=== PATIENT | female | born 1995 | race Caucasian/White ===

== ENCOUNTER 2017-10-05 09:20 | Inpatient (IN) | payer OTHER ==
[~2017-10-05] VITALS: Ht 160 cm; Wt 52.7 kg
[~2017-10-05 09:20] MED LIST: FERR142T PO; HYDR-5688 PO; MESA0.37 PO; PRED20TA2 PO
[2017-10-05] MEDS ORDERED: SODIUM CHLORIDE 0.9% 1000ML 2,000 ML IV STA (09:51)
[2017-10-05] MEDS ORDERED: ONDANSETRON INJ 2 MG/ML 2 ML VIAL IV STA (09:51)
[2017-10-05] MEDS ORDERED: FAMOTIDINE 20MG/5ML IV PUSH IV STA (09:51)
[2017-10-05] MEDS ORDERED: ACETAMINOPHEN IV 100 ML IV STA (09:56)
[2017-10-05 10:26] LABS: HEMATOCRIT 24.7 % (37-47); HEMOGLOBIN 7.3 g/dL (12.0-16.0); MEAN CELL VOLUME 70.6 fL (80-100); MEAN CORPUSCULAR HEMOGLOBIN 20.9 pg (25-34); MEAN CORPUSCULAR HGB CONC 29.6 g/dl (32-36); MEAN PLATELET VOLUME 8.1 fL (7.4-10.4); NUCLEATED RED BLOOD CELL ABS 0.02 K/uL (0-0); PLATELET COUNT 438 K/uL (130-400); RED CELL DISTRIBUTION WIDTH CV 18.1 % (11.5-14.5); RED CELL DISTRIBUTION WIDTH SD 46.6 fL (36.4-46.3); WHITE BLOOD COUNT 16.44 K/uL (4.8-10.8)
[2017-10-05 10:33] LABS: ALBUMIN 2.9 gm/dl (3.4-5.0); ALT/SGPT 15 U/L (12-78); AST/SGOT 13 U/L (15-37); BLOOD UREA NITROGEN 12 mg/dl (7-18); CALCIUM 8.3 mg/dl (8.5-10.1); CARBON DIOXIDE 30 mmol/L (21-32); CREATININE 0.89 mg/dl (0.60-1.20); GLUCOSE 102 mg/dl (70-99); LIPASE 180 U/L (73-393); POTASSIUM 3.2 mmol/L (3.5-5.1); SODIUM 137 mmol/L (136-145)
[2017-10-05 10:36] LABS: ALKALINE PHOSPHATASE 81 U/L (45-117)
[2017-10-05 10:59] LABS: BASO % 0.2 %; BASO ABS # 0.04 K/uL (0-0.2); EOS % 0.9 %; EOS ABS # 0.15 K/uL (0-0.5); IG# 0.07 K/uL (0.00-0.02); LYMPH % 12.3 %; LYMPH ABS # 2.03 K/uL (1.2-3.4); MONO ABS # 1.15 K/uL (0.11-0.59); NEUT % 79.2 %
[2017-10-05] MEDS ORDERED: METHYLPREDNISOLONE 125 MG VIAL IV STA (13:19)
[2017-10-05] MEDS ORDERED: HYDROCODONE/ACETAMIN 5/325MG TAB PO PRN (14:45)
[2017-10-05] MEDS ORDERED: [UNRECOGNIZED DRUG - OTHER] IV SCH (14:45)
[2017-10-05] MEDS ORDERED: ALUMINUM/MAGNESIUM/SIMETH (MAALOX MAX) 30 ML UDC PO PRN (14:45)
[2017-10-05] MEDS ORDERED: ACETAMINOPHEN 325 MG TAB PO PRN (14:45)
[2017-10-05] MEDS ORDERED: ZOLPIDEM TARTRATE 5 MG TAB PO PRN ×2 (14:45)
[2017-10-05] MEDS ORDERED: MAGNESIUM HYDROXIDE SUSP 30 ML UDC PO PRN (14:45)
[2017-10-05] MEDS ORDERED: ONDANSETRON INJ 2 MG/ML 2 ML VIAL IV PRN (14:45)
--- NOTE | 2017-10-05 15:08 | History and Physical ---
History & Physical Date & Time of Service: Oct 05, 2017 at 14:58 Chief Complaint: Ulcerative Colitis,Referred By Gi Primary Care Physician: [facility] History of Present Illness Source: patient 21 years old female who was diagnosed with ulcerative colitis in 2014. Had few flares since then but generally was fairly controlled on only mesalamine oral. Patient last flare was in March 2017 which was showed flare she recovered from it quickly. In May 2017 patient had a colonoscopy that was within normal limits. 2 weeks ago patient developed fever lower abdominal pain crampy in nature exaggerated by bowel movement goes to 8 out of 10 with bowel movement. Denies any nausea or vomiting. Patient came to the ED and a CAT scan was done and showed descending colitis. She was giving prednisone taper and followed up with GI. Patient has been on 35 mg prednisone daily with no improvement. She continued to have bright blood per rectum. Patient said that her baseline hemoglobin is about 11-12. Her hemoglobin 5 days ago was 8.7. Her hemoglobin today came back 7.3 discussed the possibility of blood transfusion with her and she wants to discuss it with her parents. Patient gets dizzy after bowel movement. She goes to the bathroom after every meal. Also wakes up at night to go to the bathroom. Past Medical/Surgical History Medical Problems: (1) Anemia (2) Anemia (3) IBD (inflammatory bowel disease) (4) Ulcerative colitis (5) Ulcerative colitis Family History Cancer Diabetes mellitus Hypertension Social History Smoking Status: Never Smoker Occupational Status: [employer] student Allergies Coded Allergies: No Known Allergies (Unverified , 09/29/17) Home Medications Scheduled Ferrous Sulfate (Slow Fe), 142 MG PO DAILY Mesalamine (Apriso), 4 CAP PO DAILY Prednisone (Prednisone Tab), 2 TAB PO DAILY Scheduled PRN Hydrocodone/Acetaminophen 5MG/325MG ([place] 5MG/325MG), 1 TABLET PO Q6 PRN for Pain Review of Systems Review of system Constitutional: No fever / no chills / no sweats /generalized fatigue and weakness Eyes: no blurring of vision / no eye pain / no discharge / no redness ENT: no hearing loss / no epistaxis /no swallowing problems Respiratory: no cough / no wheezing / no SOB / no hemoptysis Cardiovascular: no Chest pain / no lower extremity edema / no palpitation Abdomen: Positive for severe diarrhea with blood, abdominal pain/ no nausea / no vomiting / no constipation Musculoskeletal: no joint pain / no muscle pain / no joint swelling Genitourinary: no dysuria / no incontinence / no urinary retention Neurologic: no focal weakness / no numbness/tingling / no ataxia Psychiatric: no depression symptoms / no anxiety / no insomnia Endocrine: no excessive thirst / no excessive urination Hematologic: no abnormal bleeding / no bruising / no LN swelling Skin: No rash / no pallor Physical Exam Vital Signs Date Time Temp Pulse Resp B/P (MAP) Pulse Ox O2 Delivery O2 Flow Rate FiO2 10/05/17 14:49 74 18 107/58 98 Room Air 10/05/17 11:45 79 16 106/65 100 Room Air 10/05/17 10:41 82 16 120/68 100 10/05/17 09:27 37.7 119 18 115/82 99 Room Air Physical examination General patient appears to be weak and pale, not in acute distress HEENT: Atraumatic , normocephalic /no jaundice /no pallor /anicteric /no dry mucous membrane /normal external ear inspection Neck: Supple /no swelling /central trach Heart: S1/S2 normal/regular rate and rhythm/no gallop /no rub /no murmur Lungs: Clear to auscultation bilaterally/normal chest with expansion/no rhonchi/ no rales/no wheezing/no use of accessory muscles of respiration Abdomen: Soft/nontender/no guarding/no rebound/no organomegaly/no pulsatile mass Musculoskeletal: No swelling/no edema/no tenderness/normal range of motion Neuro exam: Awake alert oriented 3/cranial nerves II through XII appear to be intact/sensation intact/moves all extremities/no abnormal movements Psychiatric evaluation: No depressed mood/normal affect Skin: No rash on exposed skin area/no erythema Extremity: Normal pulse/no pitting edema/no clubbing or cyanosis Endocrine/lymphatic: No obvious lymphadenopathy /no lymphedema Diagnostics Laboratory Results Results Past 24 Hours Test 10/05/17 10:00 10/05/17 10:05 10/05/17 14:45 Range/Units Urine Color DK YELLOW Urine Appearance CLOUDY CLEAR Urine pH 5.5 4.5-7.5 Urine Specific [place] 1.026 1.000-1.030 Urine Protein TRACE NEG Urine Glucose (UA) NEG NEG Urine Ketones TRACE NEG Urine Occult Blood 1+ NEG Urine Nitrite NEG NEG Urine Bilirubin NEG NEG Urine Urobilinogen NEG NEG Urine Leukocyte Esterase MODERATE NEG Urine WBC (Auto) >30 0-5 /hpf Urine RBC (Auto) 0-4 0-4 /hpf Urine Hyaline Casts (Auto) 1-5 0-5 /lpf Urine Epithelial Cells (Auto) >30 0-5 /lpf Urine Bacteria (Auto) 2+ NEG Urine Pathogenic Casts 0 /lpf Urine Mucus PRESENT NONE PRSENT Urine Test NEG NEG White Blood Count 16.44 4.8-10.8 K/uL Red Blood Count 3.50 4.2-5.4 M/uL Hemoglobin 7.3 12.0-16.0 g/dL Hematocrit 24.7 37-47 % Mean Corpuscular Volume 70.6 80-100 fL Mean Corpuscular Hemoglobin 20.9 25-34 pg Mean Corpuscular Hemoglobin Concent 29.6 32-36 g/dl Platelet Count 438 130-400 K/uL Mean Platelet Volume 8.1 7.4-10.4 fL Neutrophils (%) (Auto) 79.2 % Lymphocytes (%) (Auto) 12.3 % Monocytes (%) (Auto) 7.0 % Eosinophils (%) (Auto) 0.9 % Basophils (%) (Auto) 0.2 % Neutrophils # (Auto) 13.00 1.4-6.5 K/uL Lymphocytes # (Auto) 2.03 1.2-3.4 K/uL Monocytes # (Auto) 1.15 0.11-0.59 K/uL Eosinophils # (Auto) 0.15 0-0.5 K/uL Basophils # (Auto) 0.04 0-0.2 K/uL RDW Standard Deviation 46.6 36.4-46.3 fL RDW Coefficient of Variation 18.1 11.5-14.5 % Immature Granulocyte % (Auto) 0.4 % Immature Granulocyte # (Auto) 0.07 0.00-0.02 K/uL Nucleated RBC Absolute Count (auto) 0.02 0-0 K/uL Nucleated Red Blood Cells % 0.1 % Hypochromasia PRESENT Microcytosis PRESENT Erythrocyte Sedimentation Rate 54 0-21 mm/hr Sodium Level 137 136-145 mmol/L Potassium Level 3.2 3.5-5.1 mmol/L Chloride Level 103 98-107 mmol/L Carbon Dioxide Level 30 21-32 mmol/L Anion Gap 4.0 3-11 mmol/L Blood Urea Nitrogen 12 7-18 mg/dl Creatinine 0.89 0.60-1.20 mg/dl Est Creatinine Clear Calc Drug Dose 83.4 ml/min Estimated GFR () 108.1 Estimated GFR (Non- 93.3 BUN/Creatinine Ratio 13.8 10-20 Random Glucose 102 70-99 mg/dl Lactic Acid Level 1.0 0.4-2.0 mmol/L Calcium Level 8.3 8.5-10.1 mg/dl Total Bilirubin 0.2 0.2-1 mg/dl Direct Bilirubin < 0.1 0-0.2 mg/dl Aspartate Amino Transf (AST/SGOT) 13 15-37 U/L Alanine Aminotransferase (ALT/SGPT) 15 12-78 U/L Alkaline Phosphatase 81 45-117 U/L C-Reactive Protein 4.14 0-0.29 mg/dl Total Protein 7.0 6.4-8.2 gm/dl Albumin 2.9 3.4-5.0 gm/dl Lipase 180 73-393 U/L Microbiology Results 10/05/17 Blood Culture, Ordered Pending 10/05/17 Blood Culture, Ordered Pending 10/05/17 Urine Culture, Received Pending Diagnostic Radiology [~ rep ct add3]] ABD/PELVIS IV AND ORAL CONT CT DOSE: 281.67 mGy.cm HISTORY: Pain Fever. Ulcerative colitis flare. TECHNIQUE: Multiaxial CT images of the abdomen and pelvis were performed following the use of intravenous and oral contrast. A dose lowering technique was utilized adhering to the principles of ALARA. COMPARISON STUDY: None. FINDINGS: Lung bases are clear. Liver spleen and pancreas are unremarkable. The kidneys enhance uniformly. Moderate edematous change of the wall of the descending and sigmoid colon. No evidence for abscess collection or obstruction. Possible small bilateral ovarian follicular cysts. Nonobstructive bowel pattern. Several small reactive mesenteric nodes. IMPRESSION: 1. Moderate bowel wall edema of the descending and sigmoid colon. 2. Considerations include a nonspecific colitis 3. No evidence for abscess collection or obstruction. Impression Assessment and Plan 21 years old female presented to the hospital with persistent recurrent ulcerative colitis flare failed outpatient medication sed rate and CRP were both elevated. Assessment Ulcerative colitis flare Bloody diarrhea secondary to above Acute on chronic blood loss anemia Plan Admit patient to [facility] IV fluid hydration Continue Cipro/Flagyl Ordered stool culture Ova and parasite for Giardia, Cryptosporidium, Cyclospora and microsporidia Ordered stool cultures Ordered Clostridium difficile Pain management Pepcid for GI prophylaxis Due to significant GI bleed, will hold off pharmacologic DVT prophylaxis ordered SCD boot Consult GI, patient follows up with Dr. Fountain Ordered iron transfusion will monitor hemoglobin and consider Blood transfusion if it falls below 7 Resuscitation Status VTE Prophylaxis Will order VTE Prophylaxis: Yes
[2017-10-05] MEDS: SODIUM CHLORIDE 0.9% 1000ML 1,000 ML IV SCH (17:15)
[2017-10-05 17:34] VITALS: BP 107/71; PULSE 85; TEMP 36.8; O2SAT 100; Ht 160 cm; Wt 52.7 kg
[2017-10-05] MEDS: METRONIDAZOLE 500MG / NSS IV SCH (18:24)
[2017-10-05] MEDS: CIPROFLOXACIN 400MG / D5W IV SCH (18:25)
[2017-10-05] MEDS: ONDANSETRON 4MG OD TAB SL SCH ×2 (18:32→22:47)
--- NOTE | 2017-10-05 18:35 | GASTROINTESTINAL CONSULTATION ---
DATE OF CONSULTATION: 10/05/2017 AGE: 21. SEX: Female. RACE: . ATTENDING PHYSICIAN: Dr. Sola Stauffer. CONSULTING PHYSICIAN: Dr. Fountain. REASON FOR CONSULTATION: Ulcerative colitis flare. HISTORY OF PRESENT ILLNESS: Toby Peng is a 21-year-old female who initially came to my attention as I was the on-call physician when she presented to the Department of Emergency Medicine on 09/29/2017 with complaints of bright red blood in her stool and abdominal cramping. She underwent laboratory studies at that time which showed an H&H of 8.7 and 28.9 with an MCV of 70.7. Her C-reactive protein at that time was 5.06 [address] she [address] a CT scan of the abdomen and pelvis which showed a moderate bowel wall edema of the descending and sigmoid colon. Decision was made to start the patient on a steroid taper and for a quick followup in outpatient GI office. She was seen by Jayleen Jose PA-C at our office on 10/02/2017. She does have a known history of ulcerative colitis and was diagnosed in her hometown of [place], [place] by Dr. Mack at [facility] in 2015. Since that time she has been maintained on Apriso therapy 1.5 grams p.o. daily. Records obtained reveal that her last colonoscopy was in May of [address] Makc noted significant improvement in her ulcerative pancolitis and maintained her on Apriso therapy. At the time that she was seen in our office on 10/02/2017, she did note that she was having continued bright red blood per rectum and had been on prednisone therapy for approximately 4 days. She was taking iron therapy and as she is a student at [employer] wished to be seen by her primary event marketing assistant prior to making any medication changes and followup appointment with him was scheduled within 2 weeks. She subsequently returned to the Department of Emergency Medicine on 10/05/2017 with continued complaints of hematochezia. Upon arrival today, her H&H was noted to be 7.3 and 24.7. Her platelet count was 438. Her white blood cell count was elevated at 16.44; however, she was on steroid therapy. C-reactive protein had decreased from 5.04-4.14 from her prior ER visit and a UA showed moderate leukocyte esterase, greater than 30 white blood cells and 2+ bacteria. She was subsequently admitted. At the time that I saw the patient, she stated that she had had 1 bowel movement since her arrival though noted that there was decreased blood in it than previously. She states currently she is having no abdominal pain but does have approximately 6-7 bowel movements a day, some with blood mixed in with her stool. She denies any fevers, chills, nausea or vomiting. She further denies any headaches, blurred vision, syncope, seizures, loss of consciousness, chest pain, palpitations, shortness of breath, cough, hematuria, joint pain, eye pain or other complaints. She has no further complaints. PAST MEDICAL HISTORY: Significant for ulcerative pancolitis diagnosed in 2016. Anemia. PAST SURGICAL HISTORY: None. ALLERGIES: None. MEDICATIONS: At the present time include famotidine 20 mg IV daily, iron sucrose 100 mg IV daily, milk of magnesia 30 mL p.o. q. 6 p.r.n. constipation, Ambien 5 mg p.o. at bedtime p.r.n. insomnia, Zofran 4 mg IV q. 6 p.r.n. nausea. She did receive a dose of methylprednisolone in the ER, IV. SOCIAL HISTORY: She is a student at [employer]. She denies any tobacco or illicit drug use. She has an occasional alcoholic beverage. FAMILY HISTORY: Negative for GI malignancy or inflammatory bowel disease. REVIEW OF SYSTEMS: Negative x12 system review other than pertinent positives listed in the HPI. PHYSICAL EXAMINATION: VITAL SIGNS: Include a temperature 36.8, pulse 85, respirations 16, blood pressure 107/71, pulse ox 99% on room air. GENERAL: She is awake, cooperative, in no acute distress. HEAD: Normocephalic, atraumatic. EYES: Pupils equal, round. Extraocular muscles are intact. ENT: External evaluation of ears and nose are normal. Oropharynx clear. NECK: Soft, supple. No JVD or lymphadenopathy. CHEST: Clear to auscultation bilaterally. CARDIOVASCULAR SYSTEM: Regular rate and rhythm. ABDOMEN: Soft, nontender, nondistended. Positive bowel sounds. There is no hepatosplenomegaly or stigmata of chronic liver disease. EXTREMITIES: No clubbing, cyanosis, or edema. SKIN: Noted pallor. LABORATORY STUDIES AND RADIOGRAPHIC STUDIES: Were reviewed in the HPI. IMPRESSION: This is a 21-year-old female who presents with a flare of her ulcerative colitis with chronic blood loss anemia and hematochezia. PLAN: At the present time, I would recommend that the patient stop her Apriso therapy. I will start her on mesalamine 1600 mg p.o. t.i.d. for a total dose of 4.8 grams per day. I would also recommend that she be on methylprednisolone 20 mg IV b.i.d. as this is an equivalent dose to prednisone 40 mg that she was on as an outpatient. I would recommend continuing her IV iron therapy. I will sign the patient out to Dr. Hoff who is covering my service over the weekend. If there are any questions regarding her care, please contact him in this regard. Once again, thanks for allowing me to participate in the care of this patient. If you have any further questions, please do not hesitate in contacting me.
--- NOTE | 2017-10-05 18:38 | EMERGENCY ROOM VISIT NOTE ---
History Report prepared by Keshia: Eugenio Rodarte Under the Supervision of: Dr. Georges Cowan M.D. First contact with patient: 09:47 Chief Complaint: GI ASSESSMENT Stated Complaint: ULCERATIVE COLITIS,REFERRED BY GI Nursing Triage Summary: Pt reports hx UC. Saw GI on sunday and has been getting worse. Pt reports bloody diarrhea, vomiting, nausea, unable to eat/drink History of Present Illness The patient is a 21 year old female who presents to the Emergency Room with complaints of persistent diarrhea and hematochezia that she has been experiencing for the past two weeks. The patient has a history of Ulcerative Colitis and began to notice "bright red blood" in her diarrhea two weeks ago. The patient is also nauseous, but has not vomited. She notes that she is not able to eat/drink anything without needing to go to the restroom. She is having "several" bowel movements a day, and notes that she feels a "cramping" in her lower abdomen with BMs. The patient came into the ED on Sunday, 6 days ago for her symptoms. She had a CT of her abdomen with IV-contrast, and was placed on Prednisone. This Prednisone has not improved her symptoms over the past 6 days. She now notes that she is having movements that are only blood, without stool. She did also visit with her GI physician two days ago. The patient notes that this episode is worse than her normal flairs. The patient also complains of a headache, but has no urinary irregularities. Source of History: patient Onset: 2 weeks ago Position: abdomen Symptom Intensity: several bouts of bloody diarrhea per day Quality: cramping (in abdomen), other (Hematochezia) Timing: other (persistent) Associated Symptoms: + headache, + nausea, No vomiting, No urinary symptoms Review of Systems See HPI for pertinent positives and negatives. A total of ten systems were reviewed and were otherwise negative. Past Medical & Surgical Medical Problems: (1) Anemia (2) IBD (inflammatory bowel disease) (3) Ulcerative colitis Ulcerative colitis Family History Cancer Diabetes mellitus Hypertension Social History Smoking Status: Never Smoker Marital Status: single Housing Status: lives with roommate Occupation Status: [employer] Current/Historical Medications Scheduled Ferrous Sulfate (Slow Fe), 142 MG PO DAILY Mesalamine (Apriso), 4 CAP PO DAILY Prednisone (Prednisone Tab), 2 TAB PO DAILY Scheduled PRN Hydrocodone/Acetaminophen 5MG/325MG (Lee 5MG/325MG), 1 TABLET PO Q6 PRN for Pain Allergies Coded Allergies: No Known Allergies (Unverified , 09/29/17) Physical Exam Vital Signs Date Time Temp Pulse Resp B/P (MAP) Pulse Ox O2 Delivery O2 Flow Rate FiO2 10/05/17 14:49 74 18 107/58 98 Room Air 10/05/17 11:45 79 16 106/65 100 Room Air 10/05/17 10:41 82 16 120/68 100 10/05/17 09:27 37.7 119 18 115/82 99 Room Air Physical Exam GENERAL: Awake, alert, fatigued and mildly uncomfortable but in no distress HENT: Normocephalic, atraumatic. Mucous membranes are dry. EYES: Normal conjunctiva. Sclera non-icteric. NECK: Supple. No nuchal rigidity. FROM. No JVD. RESPIRATORY: Clear to auscultation. CARDIAC: Regular rate, normal rhythm. Extremities warm and well perfused. Pulses equal. ABDOMEN: Soft, non-distended. Mild generalized discomfort but no discrete tenderness to palpation. No rebound or guarding. No masses. RECTAL: Deferred. MUSCULOSKELETAL: Chest examination reveals no tenderness. The back is symmetrical on inspection without obvious abnormality. There is no CVA tenderness to palpation. No joint edema. LOWER EXTREMITIES: Calves are equal size bilaterally and non-tender. No edema. No discoloration. NEURO: Normal sensorium. No sensory or motor deficits noted. SKIN: No rash or jaundice noted. Medical Decision & Procedures Laboratory Results 10/05/17 10:05 Red Blood Count 3.50, Mean Corpuscular Volume 70.6, Mean Corpuscular Hemoglobin 20.9, Mean Corpuscular Hemoglobin Concent 29.6, Mean Platelet Volume 8.1, Neutrophils (%) (Auto) 79.2, Lymphocytes (%) (Auto) 12.3, Monocytes (%) (Auto) 7.0, Eosinophils (%) (Auto) 0.9, Basophils (%) (Auto) 0.2, Neutrophils # (Auto) 13.00, Lymphocytes # (Auto) 2.03, Monocytes # (Auto) 1.15, Eosinophils # (Auto) 0.15, Basophils # (Auto) 0.04 10/05/17 10:05 Test 10/05/17 10:00 10/05/17 10:05 Urine Color DK YELLOW Urine Appearance CLOUDY (CLEAR) Urine pH 5.5 (4.5-7.5) Urine Specific [place] 1.026 (1.000-1.030) Urine Protein TRACE (NEG) Urine Glucose (UA) NEG (NEG) Urine Ketones TRACE (NEG) Urine Occult Blood 1+ (NEG) Urine Nitrite NEG (NEG) Urine Bilirubin NEG (NEG) Urine Urobilinogen NEG (NEG) Urine Leukocyte Esterase MODERATE (NEG) Urine WBC (Auto) >30 /hpf (0-5) Urine RBC (Auto) 0-4 /hpf (0-4) Urine Hyaline Casts (Auto) 1-5 /lpf (0-5) Urine Epithelial Cells (Auto) >30 /lpf (0-5) Urine Bacteria (Auto) 2+ (NEG) Urine Pathogenic Casts /lpf (0) Urine Mucus PRESENT (NONE PRSENT) Urine Test NEG (NEG) White Blood Count 16.44 K/uL (4.8-10.8) Red Blood Count 3.50 M/uL (4.2-5.4) Hemoglobin 7.3 g/dL (12.0-16.0) Hematocrit 24.7 % (37-47) Mean Corpuscular Volume 70.6 fL (80-100) Mean Corpuscular Hemoglobin 20.9 pg (25-34) Mean Corpuscular Hemoglobin Concent 29.6 g/dl (32-36) Platelet Count 438 K/uL (130-400) Mean Platelet Volume 8.1 fL (7.4-10.4) Neutrophils (%) (Auto) 79.2 % Lymphocytes (%) (Auto) 12.3 % Monocytes (%) (Auto) 7.0 % Eosinophils (%) (Auto) 0.9 % Basophils (%) (Auto) 0.2 % Neutrophils # (Auto) 13.00 K/uL (1.4-6.5) Lymphocytes # (Auto) 2.03 K/uL (1.2-3.4) Monocytes # (Auto) 1.15 K/uL (0.11-0.59) Eosinophils # (Auto) 0.15 K/uL (0-0.5) Basophils # (Auto) 0.04 K/uL (0-0.2) RDW Standard Deviation 46.6 fL (36.4-46.3) RDW Coefficient of Variation 18.1 % (11.5-14.5) Immature Granulocyte % (Auto) 0.4 % Immature Granulocyte # (Auto) 0.07 K/uL (0.00-0.02) Nucleated RBC Absolute Count (auto) 0.02 K/uL (0-0) Nucleated Red Blood Cells % 0.1 % Hypochromasia PRESENT Microcytosis PRESENT Erythrocyte Sedimentation Rate 54 mm/hr (0-21) Anion Gap 4.0 mmol/L (3-11) Est Creatinine Clear Calc Drug Dose 83.4 ml/min Estimated GFR () 108.1 Estimated GFR (Non- 93.3 BUN/Creatinine Ratio 13.8 (10-20) Lactic Acid Level 1.0 mmol/L (0.4-2.0) Calcium Level 8.3 mg/dl (8.5-10.1) Total Bilirubin 0.2 mg/dl (0.2-1) Direct Bilirubin < 0.1 mg/dl (0-0.2) Aspartate Amino Transf (AST/SGOT) 13 U/L (15-37) Alanine Aminotransferase (ALT/SGPT) 15 U/L (12-78) Alkaline Phosphatase 81 U/L (45-117) C-Reactive Protein 4.14 mg/dl (0-0.29) Total Protein 7.0 gm/dl (6.4-8.2) Albumin 2.9 gm/dl (3.4-5.0) Lipase 180 U/L (73-393) Procalcitonin 0.08 ng/ml (0-0.5) Laboratory results reviewed by me Medications Administered Medications (Trade) Dose Ordered Sig/Lizbet Route Start Time Stop Time Status Last Admin Dose Admin Sodium Chloride 2,000 ml @ 999 mls/hr Q2H1M STAT IV 10/05/17 09:51 10/05/17 11:51 DC 10/05/17 10:14 999 MLS/HR Ondansetron HCl (Zofran Inj) 4 mg NOW STAT IV 10/05/17 09:51 10/05/17 09:57 DC 10/05/17 10:14 4 MG Famotidine (Pepcid 20mg Iv Push) 20 mg ONE STAT IV 10/05/17 09:51 10/05/17 09:57 DC 10/05/17 10:14 20 MG Acetaminophen 100 ml @ 400 mls/hr NOW STAT IV 10/05/17 09:56 10/05/17 10:10 DC 10/05/17 10:13 400 MLS/HR Methylprednisolone Sodium Succinate (Solu-Medrol IV) 40 mg STK-MED ONCE .ROUTE 10/05/17 13:39 10/05/17 13:40 DC 10/05/17 13:39 20 MG ED Course 0949: The patient was evaluated in room B11B. A complete history and physical exam was performed. 1136: I updated the patient at this time. She is doing well. 1314: I discussed the case with Dr. Александр Phillips [facility]. He suggests an inpatient stay with IV-steroids. 1322: I updated the patient at this time. She was resting in bed. 1424: I discussed the case with Dr. Sola Stauffer [place] [facility] [place]. He will evaluate the patient for further treatment. Medical Decision I reviewed the patient's past medical history, medications, and the nursing notes as described above. Differential diagnosis: Etiologies such as appendicitis, diverticulitis, PUD, biliary pathology, UTI, pancreatitis, obstruction, mesenteric ischemia, aortic pathology, infections, inflammatory bowel disease, renal colic, as well as others were entertained. The patient is a 21-year-old woman with a past medical history of ulcerative colitis on mesalamine who presents emergency department with persistent of her bloody bowel movements in the setting of her ulcerative colitis flare after being seen in the emergency department on 09/29 for similar symptoms per hpi. Of note, on the patient's prior ED visit she did have a CT with IV and oral contrast that did show descending and sigmoid colon bowel wall thickening. At that time her WBC was within normal limits. ESR 64 and CRP 5. On arrival today the patient is uncomfortable but no acute distress, afebrile stable vital signs. She has generalized abdominal discomfort but no discrete tenderness. Labs today demonstrate a WBC of 16 however in the setting of being on prednisone. Otherwise her inflammatory markers do appear to be improving with ESR in 50s and CRP of 4. However, the patient's hemoglobin has decreased from 8.7 down to 7.3. Patient's rectal exam has scant red blood but no gross hemorrhage. I discussed the case with Daniele Stratton, who agrees to hold off on repeat imaging in this young patient. Additionally agrees that is reasonable to admit the patient for further treatment including IV steroids. The patient is agreeable with this plan. Case was discussed with Dr. Selby, [facility] [place], who will admit the patient for further management. Consults Time Called: 1213 Consulting Physician: Dr. Александр Phillips [facility] Returned Call: [phone] I discussed the case with Dr. Александр Webster. He suggests an inpatient stay with IV-steroids. Additional Consults: Time Called: 1406 Consulted Physician: Dr. Sola Phillips [facility] [place] Returned Call: [phone] Additional Comments: I discussed the case with Dr. Sola NICHOLS Hospitalist. He will evaluate the patient for further treatment. Impression Primary Impression: Exacerbation of ulcerative colitis Scribe Attestation The scribe's documentation has been prepared under my direction and personally reviewed by me in its entirety. I confirm that the note above accurately reflects all work, treatment, procedures, and medical decision making performed by me. Departure Information Dispostion Being Evaluated By Hospitalist [facility] (PCP) Patient Instructions My [facility]
[2017-10-05] MEDS ORDERED: METHYLPREDNISOLONE IV 80 MG in SYRINGE 0 ML IV SCH (19:00)
[2017-10-05] MEDS: METHYLPREDNISOLONE 20 MG in SYRINGE 0 ML IV SCH (20:09)
[2017-10-05] MEDS: MESALAMINE 400 MG CAPDR PO SCH (20:10)
[2017-10-05] MEDS ORDERED: [UNRECOGNIZED DRUG - OTHER] IV SCH (21:00)
[2017-10-06] VITALS (11 sets, daily range): BP systolic 91–102; BP diastolic 54–68; PULSE 72–82; TEMP 36.7–36.9; O2SAT 97–100
[2017-10-06] MEDS: METRONIDAZOLE 500MG / NSS IV SCH ×3 (02:22→16:59)
[2017-10-06 06:01] LABS: HEMATOCRIT 21.4 % (37-47); HEMOGLOBIN 6.4 g/dL (12.0-16.0); MEAN CELL VOLUME 69.9 fL (80-100); MEAN CORPUSCULAR HEMOGLOBIN 20.9 pg (25-34); MEAN CORPUSCULAR HGB CONC 29.9 g/dl (32-36); PLATELET COUNT 403 K/uL (130-400); RED CELL DISTRIBUTION WIDTH SD 46.2 fL (36.4-46.3); WHITE BLOOD COUNT 15.61 K/uL (4.8-10.8)
[2017-10-06] MEDS: CIPROFLOXACIN 400MG / D5W IV SCH ×2 (06:15→16:59)
[2017-10-06] MEDS: ONDANSETRON 4MG OD TAB SL SCH ×4 (06:17→23:01)
[2017-10-06 06:19] LABS: BASO % 0.1 %; BASO ABS # 0.02 K/uL (0-0.2); EOS % 0.1 %; EOS ABS # 0.01 K/uL (0-0.5); IG# 0.08 K/uL (0.00-0.02); LYMPH % 16.5 %; LYMPH ABS # 2.57 K/uL (1.2-3.4); MONO % 10.4 %; MONO ABS # 1.62 K/uL (0.11-0.59); NEUT % 72.4 %; NEUT ABS # 11.31 K/uL (1.4-6.5)
[2017-10-06 06:33] LABS: ALBUMIN 2.2 gm/dl (3.4-5.0); ALKALINE PHOSPHATASE 66 U/L (45-117); ALT/SGPT 13 U/L (12-78); AST/SGOT 11 U/L (15-37); BLOOD UREA NITROGEN 8 mg/dl (7-18); CALCIUM 8.1 mg/dl (8.5-10.1); CARBON DIOXIDE 27 mmol/L (21-32); CREATININE 0.56 mg/dl (0.60-1.20); GLUCOSE 88 mg/dl (70-99); POTASSIUM 3.9 mmol/L (3.5-5.1); SODIUM 137 mmol/L (136-145); TOTAL PROTEIN 5.6 gm/dl (6.4-8.2)
[2017-10-06 06:48] LABS: HEMATOCRIT 24.4 % (37-47); HEMOGLOBIN 7.4 g/dL (12.0-16.0)
--- NOTE | 2017-10-06 07:37 | Family Medicine Progress Note ---
Progress Note Date of Service Oct 06, 2017. Subjective No acute events overnight. Pt is still NPO. H&H overnight showed hemoglobin of 6.4. Repeat check this AM is 7.4. Pt is asymptomatic. Had 3 bloody bowel movements overnight, albeit 2 were very small she says. Pain is controlled on current regimen Currently denies chest pain, palpitations, difficulty breathing, lightheadedness. Says she is hungry. Fluids are running at 75 ml/hr, cipro and flagyl and mesalamine and methylpred on. Objective Physical Exam Notes: GENERAL: Awake, alert, well-appearing, in no distress. Mild pallor at lips. HENT: Normocephalic, atraumatic. EYES: Normal conjunctiva. NECK: Supple. FROM. RESPIRATORY: Clear to auscultation. CARDIAC: Regular rate, normal rhythm. Extremities warm and well perfused. Pulses equal. ABDOMEN: Soft, non-distended. No tenderness to palpation. No rebound or guarding. No masses. LOWER EXTREMITIES: Calves are equal size bilaterally and non-tender. No edema. No discoloration. NEURO: No motor deficits noted. SKIN: No rash or jaundice noted. Assessment and Plan 21yo F here for UC flare Assessment 1. Ulcerative colitis, acute on chronic, flare 2. Acute blood loss anemia due to BRBPR Plan 1. GI consulted, appreciate care 2. Home mesalamine dosing held, on 1600mg TID here. Also Methylpred 20mg BID , cipro and flagyl. 3. Following h&h q6. Last recheck hgb was 6.8. Transfused 1 unit PRBC's. Pt completely asymptomatic. 4. Continue fluids NSS @ 75 ml/hr for gentle hydration. 5. Contine Iron sucrose 100mg daily IV. 6. Advance diet as tolerated, per GI recs. 7. [place] ordered, has not needed any thus far. VTE PPX: none indicated at this time due to anemia, encourage ambulation Dispo: med/surg. Good family support from mother and father. Current Inpatient Medications Medications (Trade) Dose Ordered Sig/Lizbet Route Start Time Stop Time Status Last Admin Dose Admin Acetaminophen/ Hydrocodone Bitart ([place] 5/325 Tab) 1 tab Q6 PRN PO 10/05/17 14:45 10/19/17 14:44 Sodium Chloride 1,000 ml @ 75 mls/hr [id number] IV 4/27/18 17:00 11/04/17 16:59 10/06/17 08:26 75 MLS/HR Ondansetron HCl (Zofran Odt) 4 mg Q6H SL 10/05/17 17:00 11/04/17 16:59 10/06/17 16:59 4 MG Acetaminophen (Tylenol Tab) 650 mg Q4H PRN PO 10/05/17 14:45 11/04/17 14:44 Al Hydrox/Mg Hydrox/Simethicone (Maalox Max Susp) 15 ml Q4H PRN PO 10/05/17 14:45 11/04/17 14:44 Magnesium Hydroxide (Milk Of Magnesia Susp) 30 ml Q6H PRN PO 10/05/17 14:45 11/04/17 14:44 Zolpidem Tartrate (Ambien Tab) 5 mg HSZ PRN PO 10/05/17 14:45 11/04/17 14:44 Ondansetron HCl (Zofran Inj) 4 mg Q6H PRN IV 10/05/17 14:45 11/04/17 14:44 Iron Sucrose 100 mg/Sodium Chloride 105 ml @ 210 mls/hr DAILY IV 10/06/17 08:00 10/10/17 08:29 10/06/17 08:25 210 MLS/HR Famotidine 20 mg/ Syringe 5 ml @ 2.5 mls/min DAILY IV 10/06/17 08:00 11/05/17 07:59 10/06/17 08:25 2.5 MLS/MIN Mesalamine (Delzicol Delayed Rel Cap) 1,600 mg TID PO 10/05/17 20:00 11/04/17 19:59 10/06/17 13:55 1,600 MG Methylprednisolone Sodium Succinate 20 mg/Syringe 0.32 ml @ 1.5 mls/min BID IV 10/05/17 20:00 11/04/17 19:59 10/06/17 08:54 1.5 MLS/MIN Ciprofloxacin/ Dextrose 400 mg/ Prmx 200 ml @ 100 mls/hr Q12H IV 10/05/17 18:00 10/15/17 17:59 10/06/17 16:59 100 MLS/HR Metronidazole 500 mg/Prmx 100 ml @ 100 mls/hr Q8H IV 10/05/17 18:00 10/15/17 17:59 10/06/17 16:59 100 MLS/HR Date Time Temp Pulse Resp B/P (MAP) Pulse Ox O2 Delivery O2 Flow Rate FiO2 10/06/17 16:48 Room Air 10/06/17 16:30 36.8 76 18 102/68 100 10/06/17 16:04 36.9 74 18 96/60 100 10/06/17 15:30 36.8 72 18 94/59 100 10/06/17 15:00 36.7 82 18 99/65 98 10/06/17 14:45 36.8 73 18 95/59 98 10/06/17 14:30 36.7 78 18 96/59 10/06/17 10:15 Room Air 10/06/17 08:50 36.7 78 18 97/61 (73) 100 10/06/17 07:51 36.7 75 18 95/61 (72) 100 Room Air 10/06/17 06:36 79 20 98/64 (75) 100 Room Air 10/06/17 00:04 36.8 81 18 93/58 (70) 98 Room Air 10/06/17 00:00 Room Air 10/06/17 05:25 Red Blood Count 3.06, Mean Corpuscular Volume 69.9, Mean Corpuscular Hemoglobin 20.9, Mean Corpuscular Hemoglobin Concent 29.9, Mean Platelet Volume 8.0, Neutrophils (%) (Auto) 72.4, Lymphocytes (%) (Auto) 16.5, Monocytes (%) (Auto) 10.4, Eosinophils (%) (Auto) 0.1, Basophils (%) (Auto) 0.1, Neutrophils # (Auto ) 11.31, Lymphocytes # (Auto) 2.57, Monocytes # (Auto) 1.62, Eosinophils # (Auto ) 0.01, Basophils # (Auto) 0.02 10/06/17 12:08 10/06/17 05:25 Test 10/06/17 00:00 10/06/17 05:25 White Blood Count 15.61 K/uL (4.8-10.8) Red Blood Count 3.06 M/uL (4.2-5.4) Hemoglobin 6.4 g/dL (12.0-16.0) Hematocrit 21.4 % (37-47) Mean Corpuscular Volume 69.9 fL (80-100) Mean Corpuscular Hemoglobin 20.9 pg (25-34) Mean Corpuscular Hemoglobin Concent 29.9 g/dl (32-36) Platelet Count 403 K/uL (130-400) Mean Platelet Volume 8.0 fL (7.4-10.4) Neutrophils (%) (Auto) 72.4 % Lymphocytes (%) (Auto) 16.5 % Monocytes (%) (Auto) 10.4 % Eosinophils (%) (Auto) 0.1 % Basophils (%) (Auto) 0.1 % Neutrophils # (Auto) 11.31 K/uL (1.4-6.5) Lymphocytes # (Auto) 2.57 K/uL (1.2-3.4) Monocytes # (Auto) 1.62 K/uL (0.11-0.59) Eosinophils # (Auto) 0.01 K/uL (0-0.5) Basophils # (Auto) 0.02 K/uL (0-0.2) RDW Standard Deviation 46.2 fL (36.4-46.3) RDW Coefficient of Variation 18.0 % (11.5-14.5) Immature Granulocyte % (Auto) 0.5 % Immature Granulocyte # (Auto) 0.08 K/uL (0.00-0.02) Polychromasia 1+ Hypochromasia PRESENT Microcytosis PRESENT Erythrocyte Sedimentation Rate 25 mm/hr (0-21) Anion Gap 3.0 mmol/L (3-11) Est Creatinine Clear Calc Drug Dose 132.5 ml/min Estimated GFR () > 150.0 Estimated GFR (Non- 134.2 BUN/Creatinine Ratio 14.9 (10-20) Lactic Acid Level 0.8 mmol/L (0.4-2.0) Calcium Level 8.1 mg/dl (8.5-10.1) Magnesium Level 2.1 mg/dl (1.8-2.4) Total Bilirubin 0.2 mg/dl (0.2-1) Aspartate Amino Transf (AST/SGOT) 11 U/L (15-37) Alanine Aminotransferase (ALT/SGPT) 13 U/L (12-78) Alkaline Phosphatase 66 U/L (45-117) C-Reactive Protein 4.11 mg/dl (0-0.29) Total Protein 5.6 gm/dl (6.4-8.2) Albumin 2.2 gm/dl (3.4-5.0) Globulin 3.4 gm/dl (2.5-4.0) Albumin/Globulin Ratio 0.6 (0.9-2) Continued [facility] stay due to: multiple IV medications needed Discharge planning: home Resident Tracking Resident Involvement: Resident Care Provided Care Provided: Adult [facility] Medicine Assessment/Plan Resident Physician Supervision Note: I was present with Dr. Silva during the history and exam. I discussed the case with the resident and agree with the findings and plan as documented in the note. Any exceptions or clarifications are listed here: Pt reports mild fatigue with improvement of hematochezia with decrease and darkening of blood. Despite that, Hgb dipped to 6.8, so will txf 1 unit after discussion of consent with patient and family. Agree w/ increase mesalamine and continued steroid therapy with q6hr h/h.
[2017-10-06] MEDS ORDERED: FAMOTIDINE IV INJ 20 MG in DEXTROSE 5% 100ML 100 ML IV SCH (08:00)
[2017-10-06] MEDS: IRON SUCROSE INJ 100 MG in SODIUM CHLORIDE 0.9% 100ML 100 ML IV SCH (08:25)
[2017-10-06] MEDS: MESALAMINE 400 MG CAPDR PO SCH ×3 (08:25→21:04)
[2017-10-06] MEDS: FAMOTIDINE IV INJ 20 MG in SYRINGE 3 ML IV SCH (08:25)
[2017-10-06] MEDS: SODIUM CHLORIDE 0.9% 1000ML 1,000 ML IV SCH (08:26)
[2017-10-06] MEDS: METHYLPREDNISOLONE 20 MG in SYRINGE 0 ML IV SCH ×2 (08:54→21:04)
[2017-10-06 12:36] LABS: HEMATOCRIT 22.1 % (37-47); HEMOGLOBIN 6.8 g/dL (12.0-16.0)
--- NOTE | 2017-10-06 16:05 | Progress Note ---
Progress Note Date of Service Oct 06, 2017. Progress Note Feels mildly improved compared to admission. Still with diarrhea - 4 loose BM' s so far today, no bleeding. Denies abd pain. Hungry. Receiving 1 U PRBC Date Time Temp Pulse Resp B/P (MAP) Pulse Ox O2 Delivery O2 Flow Rate FiO2 10/06/17 15:30 36.8 72 18 94/59 100 10/06/17 15:00 36.7 82 18 99/65 98 10/06/17 14:45 36.8 73 18 95/59 98 10/06/17 14:30 36.7 78 18 96/59 10/06/17 10:15 Room Air 10/06/17 08:50 36.7 78 18 97/61 (73) 100 10/06/17 07:51 36.7 75 18 95/61 (72) 100 Room Air 10/06/17 06:36 79 20 98/64 (75) 100 Room Air 10/06/17 00:04 36.8 81 18 93/58 (70) 98 Room Air 10/06/17 00:00 Room Air 10/05/17 17:34 36.8 85 16 107/71 100 Room Air 10/05/17 16:04 36.8 80 16 100/60 99 Pleasant, comfortable Abd: soft NT Labs Last 24 Hours Test 10/06/17 05:25 10/06/17 06:35 10/06/17 12:08 White Blood Count 15.61 K/uL Red Blood Count 3.06 M/uL Hemoglobin 6.4 g/dL 7.4 g/dL 6.8 g/dL Hematocrit 21.4 % 24.4 % 22.1 % Mean Corpuscular Volume 69.9 fL Mean Corpuscular Hemoglobin 20.9 pg Mean Corpuscular Hemoglobin Concent 29.9 g/dl Platelet Count 403 K/uL Mean Platelet Volume 8.0 fL Neutrophils (%) (Auto) 72.4 % Lymphocytes (%) (Auto) 16.5 % Monocytes (%) (Auto) 10.4 % Eosinophils (%) (Auto) 0.1 % Basophils (%) (Auto) 0.1 % Neutrophils # (Auto) 11.31 K/uL Lymphocytes # (Auto) 2.57 K/uL Monocytes # (Auto) 1.62 K/uL Eosinophils # (Auto) 0.01 K/uL Basophils # (Auto) 0.02 K/uL RDW Standard Deviation 46.2 fL RDW Coefficient of Variation 18.0 % Immature Granulocyte % (Auto) 0.5 % Immature Granulocyte # (Auto) 0.08 K/uL Polychromasia 1+ Hypochromasia PRESENT Microcytosis PRESENT Erythrocyte Sedimentation Rate 25 mm/hr Sodium Level 137 mmol/L Potassium Level 3.9 mmol/L Chloride Level 107 mmol/L Carbon Dioxide Level 27 mmol/L Anion Gap 3.0 mmol/L Blood Urea Nitrogen 8 mg/dl Creatinine 0.56 mg/dl Est Creatinine Clear Calc Drug Dose 132.5 ml/min Estimated GFR () > 150.0 Estimated GFR (Non- 134.2 BUN/Creatinine Ratio 14.9 Random Glucose 88 mg/dl Lactic Acid Level 0.8 mmol/L Calcium Level 8.1 mg/dl Magnesium Level 2.1 mg/dl Total Bilirubin 0.2 mg/dl Aspartate Amino Transf (AST/SGOT) 11 U/L Alanine Aminotransferase (ALT/SGPT) 13 U/L Alkaline Phosphatase 66 U/L C-Reactive Protein 4.11 mg/dl Total Protein 5.6 gm/dl Albumin 2.2 gm/dl Globulin 3.4 gm/dl Albumin/Globulin Ratio 0.[address] reviewed A/P: H/o UC, admit with flare refractory to PO steroids Anemia - Cont IV steroids at current dose and ABX as recommended by Dr. Fountain. Low res diet as tolerated. CRP on day 3, consider cscopy and therapy escalation if CRP still elevated or still persistent symptomatic
[2017-10-06 19:34] LABS: HEMATOCRIT 28.5 % (37-47); HEMOGLOBIN 8.9 g/dL (12.0-16.0)
[2017-10-07] MEDS: SODIUM CHLORIDE 0.9% 1000ML 1,000 ML IV SCH ×2 (02:30→08:19)
[2017-10-07] MEDS: METRONIDAZOLE 500MG / NSS IV SCH ×2 (02:30→10:13)
[2017-10-07] MEDS: ONDANSETRON 4MG OD TAB SL SCH ×3 (05:46→17:45)
[2017-10-07] MEDS: CIPROFLOXACIN 400MG / D5W IV SCH (05:47)
[2017-10-07 05:56] LABS: BASO % 0.2 %; BASO ABS # 0.03 K/uL (0-0.2); HEMATOCRIT 29.4 % (37-47); HEMOGLOBIN 9.2 g/dL (12.0-16.0); IG# 0.22 K/uL (0.00-0.02); LYMPH % 15.4 %; LYMPH ABS # 2.48 K/uL (1.2-3.4); MEAN CELL VOLUME 71.9 fL (80-100); MEAN CORPUSCULAR HEMOGLOBIN 22.5 pg (25-34); MEAN CORPUSCULAR HGB CONC 31.3 g/dl (32-36); MEAN PLATELET VOLUME 8.1 fL (7.4-10.4); MONO ABS # 0.97 K/uL (0.11-0.59); NEUT ABS # 12.37 K/uL (1.4-6.5); NUCLEATED RED BLOOD CELL ABS 0.06 K/uL (0-0); PLATELET COUNT 435 K/uL (130-400); RED CELL DISTRIBUTION WIDTH CV 17.9 % (11.5-14.5); RED CELL DISTRIBUTION WIDTH SD 46.7 fL (36.4-46.3); WHITE BLOOD COUNT 16.07 K/uL (4.8-10.8)
[2017-10-07 06:24] LABS: CALCIUM 8.1 mg/dl (8.5-10.1); CREATININE 0.75 mg/dl (0.60-1.20); POTASSIUM 3.8 mmol/L (3.5-5.1)
[2017-10-07 07:35] VITALS: BP 99/64; PULSE 78; TEMP 36.7; O2SAT 100
[2017-10-07] MEDS: FAMOTIDINE IV INJ 20 MG in SYRINGE 3 ML IV SCH (08:17)
[2017-10-07] MEDS: METHYLPREDNISOLONE 20 MG in SYRINGE 0 ML IV SCH ×2 (08:17→20:34)
[2017-10-07] MEDS: MESALAMINE 400 MG CAPDR PO SCH ×3 (08:17→20:35)
[2017-10-07] MEDS: IRON SUCROSE INJ 100 MG in SODIUM CHLORIDE 0.9% 100ML 100 ML IV SCH (08:17)
--- NOTE | 2017-10-07 09:07 | Family Medicine Progress Note ---
Progress Note Date of Service Oct 07, 2017. Subjective No events overnight. Pt tolerating low residue diet. Total of 5 BM's yesterday , last two were non bloody. Hgb this morning is up to 9. Pt reports feeling much better after infusion. Denies abdominal pain at this time. Denies lightheadedness or difficulty breathing or palpitations. ROS See HPI for pertinent positives and negatives. Objective Physical Exam Notes: GENERAL: Awake, alert, well-appearing, in no distress HENT: Normocephalic, atraumatic. EYES: Normal conjunctiva. Sclera non-icteric. NECK: Supple. FROM. RESPIRATORY: Clear to auscultation. CARDIAC: Regular rate, normal rhythm. Extremities warm and well perfused. Pulses equal. ABDOMEN: Soft, non-distended. No tenderness to palpation. No rebound or guarding. No masses. LOWER EXTREMITIES: Calves are equal size bilaterally and non-tender. No edema. No discoloration. NEURO: No motor deficits noted. SKIN: No rash or jaundice noted. Assessment and Plan 21yo F here for UC flare Assessment 1. Ulcerative colitis, acute on chronic, flare 2. Acute blood loss anemia due to BRBPR Plan 1. GI consulted, appreciate care 2. Home mesalamine dosing held, on 1600mg IV TID here. 3. Methylpred 20mg IV BID, cipro and flagyl IV, and Iron sucrose 100mg IV daily. 4. Following h&h q6. Last recheck this am was 9.2. Transfused 1 unit PRBC's on day 1. Pt completely asymptomatic, doing well. Next recheck 1700. 5. Continue gentle fluids NSS @ 75 ml/hr. 6. Tolerating advanced diet, per GI recs. 7. Pandora ordered, has not needed any thus far. VTE PPX: none indicated at this time due to anemia, encourage ambulation Dispo: med/surg. Good family support from mother and father. Likely home tomorrow Current Inpatient Medications Medications (Trade) Dose Ordered Sig/Lizbet Route Start Time Stop Time Status Last Admin Dose Admin Acetaminophen/ Hydrocodone Bitart ([place] 5/325 Tab) 1 tab Q6 PRN PO 10/05/17 14:45 10/19/17 14:44 Sodium Chloride 1,000 ml @ 75 mls/hr [id number] IV 10/05/17 17:00 11/04/17 16:59 10/07/17 08:19 75 MLS/HR Ondansetron HCl (Zofran Odt) 4 mg Q6H SL 10/05/17 17:00 11/04/17 16:59 10/07/17 10:16 4 MG Acetaminophen (Tylenol Tab) 650 mg Q4H PRN PO 10/05/17 14:45 11/04/17 14:44 Al Hydrox/Mg Hydrox/Simethicone (Maalox Max Susp) 15 ml Q4H PRN PO 10/05/17 14:45 11/04/17 14:44 Magnesium Hydroxide (Milk Of Magnesia Susp) 30 ml Q6H PRN PO 10/05/17 14:45 11/04/17 14:44 Zolpidem Tartrate (Ambien Tab) 5 mg HSZ PRN PO 10/05/17 14:45 11/04/17 14:44 Ondansetron HCl (Zofran Inj) 4 mg Q6H PRN IV 10/05/17 14:45 11/04/17 14:44 Iron Sucrose 100 mg/Sodium Chloride 105 ml @ 210 mls/hr DAILY IV 10/06/17 08:00 10/10/17 08:29 10/07/17 08:17 210 MLS/HR Famotidine 20 mg/ Syringe 5 ml @ 2.5 mls/min DAILY IV 10/06/17 08:00 11/05/17 07:59 10/07/17 08:17 2.5 MLS/MIN Mesalamine (Delzicol Delayed Rel Cap) 1,600 mg TID PO 10/05/17 20:00 11/04/17 19:59 10/07/17 13:45 1,600 MG Methylprednisolone Sodium Succinate 20 mg/Syringe 0.32 ml @ 1.5 mls/min BID IV 10/05/17 20:00 11/04/17 19:59 10/07/17 08:17 1.5 MLS/MIN Ciprofloxacin/ Dextrose 400 mg/ Prmx 200 ml @ 100 mls/hr Q12H IV 10/05/17 18:00 10/15/17 17:59 10/07/17 05:47 100 MLS/HR Metronidazole 500 mg/Prmx 100 ml @ 100 mls/hr Q8H IV 10/05/17 18:00 10/15/17 17:59 10/07/17 10:13 100 MLS/HR Date Time Temp Pulse Resp B/P (MAP) Pulse Ox O2 Delivery O2 Flow Rate FiO2 10/07/17 15:43 Room Air 10/07/17 14:59 36.7 78 18 96/60 (72) 100 10/07/17 11:09 Room Air 10/07/17 07:35 36.7 78 16 99/64 (76) 100 Room Air 10/07/17 00:00 Room Air 10/06/17 23:32 36.8 76 18 91/54 (66) 97 Room Air 10/06/17 20:00 Room Air 10/07/17 05:32 Red Blood Count 4.09, Mean Corpuscular Volume 71.9, Mean Corpuscular Hemoglobin 22.5, Mean Corpuscular Hemoglobin Concent 31.3, Mean Platelet Volume 8.1, Neutrophils (%) (Auto) 77.0, Lymphocytes (%) (Auto) 15.4, Monocytes (%) (Auto) 6.0, Eosinophils (%) (Auto) 0.0, Basophils (%) (Auto) 0.2, Neutrophils # (Auto) 12.37, Lymphocytes # (Auto) 2.48, Monocytes # (Auto) 0.97, Eosinophils # (Auto) 0.00, Basophils # (Auto) 0.03 10/07/17 05:32 Test 10/07/17 05:32 White Blood Count 16.07 K/uL (4.8-10.8) Red Blood Count 4.09 M/uL (4.2-5.4) Hemoglobin 9.2 g/dL (12.0-16.0) Hematocrit 29.4 % (37-47) Mean Corpuscular Volume 71.9 fL (80-100) Mean Corpuscular Hemoglobin 22.5 pg (25-34) Mean Corpuscular Hemoglobin Concent 31.3 g/dl (32-36) Platelet Count 435 K/uL (130-400) Mean Platelet Volume 8.1 fL (7.4-10.4) Neutrophils (%) (Auto) 77.0 % Lymphocytes (%) (Auto) 15.4 % Monocytes (%) (Auto) 6.0 % Eosinophils (%) (Auto) 0.0 % Basophils (%) (Auto) 0.2 % Neutrophils # (Auto) 12.37 K/uL (1.4-6.5) Lymphocytes # (Auto) 2.48 K/uL (1.2-3.4) Monocytes # (Auto) 0.97 K/uL (0.11-0.59) Eosinophils # (Auto) 0.00 K/uL (0-0.5) Basophils # (Auto) 0.03 K/uL (0-0.2) RDW Standard Deviation 46.7 fL (36.4-46.3) RDW Coefficient of Variation 17.9 % (11.5-14.5) Immature Granulocyte % (Auto) 1.4 % Immature Granulocyte # (Auto) 0.22 K/uL (0.00-0.02) Nucleated RBC Absolute Count (auto) 0.06 K/uL (0-0) Nucleated Red Blood Cells % 0.4 % Anion Gap 7.0 mmol/L (3-11) Est Creatinine Clear Calc Drug Dose 98.9 ml/min Estimated GFR () 133.0 Estimated GFR (Non- 114.7 BUN/Creatinine Ratio 13.2 (10-20) Calcium Level 8.1 mg/dl (8.5-10.1) C-Reactive Protein 2.40 mg/dl (0-0.29) Continued [facility] stay due to: multiple IV medications needed Discharge planning: home Resident Tracking Resident Involvement: Resident Care Provided Care Provided: Adult Hospital Medicine Assessment/Plan Resident Physician Supervision Note: I was present with Dr. Silva during the history and exam. I discussed the case with the resident and agree with the findings and plan as documented in the note. Any exceptions or clarifications are listed here: Pt ambulating on the floor without complaint of lightheadedness, BECERRIL, abdominal discomfort. BM last night was brown and soft but without apparent bleeding. Hgb has been stable (increased to 9.2). Benign abdominal examination. Will discuss w / GI re: disposition.
[2017-10-07 14:59] VITALS: BP 96/60; PULSE 78; TEMP 36.7; O2SAT 100
[2017-10-07 17:42] LABS: HEMATOCRIT 29.8 % (37-47); HEMOGLOBIN 9.5 g/dL (12.0-16.0)
[2017-10-07] MEDS ORDERED: NURSING VERBAL MED ORDER ONE (18:30)
[2017-10-07 23:03] VITALS: BP 93/60; PULSE 62; TEMP 36.3; O2SAT 98
[2017-10-08] MEDS: ONDANSETRON 4MG OD TAB SL SCH ×3 (01:39→11:18)
[2017-10-08 06:47] LABS: BASO % 0.1 %; BASO ABS # 0.02 K/uL (0-0.2); EOS % 0.1 %; EOS ABS # 0.02 K/uL (0-0.5); HEMATOCRIT 29.7 % (37-47); HEMOGLOBIN 9.2 g/dL (12.0-16.0); IG# 0.32 K/uL (0.00-0.02); LYMPH % 16.5 %; LYMPH ABS # 3.33 K/uL (1.2-3.4); MEAN CORPUSCULAR HEMOGLOBIN 22.6 pg (25-34); MEAN PLATELET VOLUME 8.2 fL (7.4-10.4); MONO % 6.5 %; MONO ABS # 1.32 K/uL (0.11-0.59); NEUT % 75.2 %; NEUT ABS # 15.22 K/uL (1.4-6.5); NUCLEATED RED BLOOD CELL ABS 0.07 K/uL (0-0); PLATELET COUNT 422 K/uL (130-400); RED CELL DISTRIBUTION WIDTH CV 18.7 % (11.5-14.5); RED CELL DISTRIBUTION WIDTH SD 48.7 fL (36.4-46.3); WHITE BLOOD COUNT 20.23 K/uL (4.8-10.8)
[2017-10-08 07:45] VITALS: BP 98/61; PULSE 59; TEMP 36.7; O2SAT 100
[2017-10-08 08:00] VITALS: O2SAT 100
[2017-10-08] MEDS: MESALAMINE 400 MG CAPDR PO SCH ×2 (08:27→13:36)
[2017-10-08] MEDS: METHYLPREDNISOLONE 20 MG in SYRINGE 0 ML IV SCH (08:28)
[2017-10-08] MEDS: FAMOTIDINE IV INJ 20 MG in SYRINGE 3 ML IV SCH (08:28)
[2017-10-08] MEDS: IRON SUCROSE INJ 100 MG in SODIUM CHLORIDE 0.9% 100ML 100 ML IV SCH (08:28)
--- NOTE | 2017-10-08 09:38 | Gastroenterology Progress Note ---
Progress Note Date of Service: Oct 08, 2017 Subjective Pt evaluation today including: conversation w/ patient, physical exam, chart review, lab review, review of inpatient medication list Patient reports significant symptom improvement. She has only had a single bowel movement this morning which was softly formed. No blood noted in the stool. She further denies any abdominal pain, bloating, nausea or vomiting, fevers/chills or fatigue. She received a dose of IV iron this morning. Hemoglobin and hematocrit 9.2 and 29.7 today. CRP down to 2.40. Continues Solu- Medrol 20 mg IV BID and Delzicol 1.6 g TID. Review of Systems Constitutional: No problem reported Respiratory: No problem reported Cardiac: No problem reported Abdomen: + see HPI Psych: No problem reported Medications Current Inpatient Medications Medications (Trade) Dose Ordered Sig/Lizbet Route Start Time Stop Time Status Last Admin Dose Admin Acetaminophen/ Hydrocodone Bitart ([place] 5/325 Tab) 1 tab Q6 PRN PO 10/05/17 14:45 10/19/17 14:44 Ondansetron HCl (Zofran Odt) 4 mg Q6H SL 10/05/17 17:00 11/04/17 16:59 10/08/17 05:55 4 MG Acetaminophen (Tylenol Tab) 650 mg Q4H PRN PO 10/05/17 14:45 11/04/17 14:44 Al Hydrox/Mg Hydrox/Simethicone (Maalox Max Susp) 15 ml Q4H PRN PO 10/05/17 14:45 11/04/17 14:44 Magnesium Hydroxide (Milk Of Magnesia Susp) 30 ml Q6H PRN PO 10/05/17 14:45 11/04/17 14:44 Zolpidem Tartrate (Ambien Tab) 5 mg HSZ PRN PO 10/05/17 14:45 11/04/17 14:44 Ondansetron HCl (Zofran Inj) 4 mg Q6H PRN IV 10/05/17 14:45 11/04/17 14:44 Iron Sucrose 100 mg/Sodium Chloride 105 ml @ 210 mls/hr DAILY IV 10/06/17 08:00 10/10/17 08:29 10/08/17 08:28 210 MLS/HR Famotidine 20 mg/ Syringe 5 ml @ 2.5 mls/min DAILY IV 10/06/17 08:00 11/05/17 07:59 10/08/17 08:28 2.5 MLS/MIN Mesalamine (Delzicol Delayed Rel Cap) 1,600 mg TID PO 10/05/17 20:00 11/04/17 19:59 10/08/17 08:27 1,600 MG Methylprednisolone Sodium Succinate 20 mg/Syringe 0.32 ml @ 1.5 mls/min BID IV 10/05/17 20:00 11/04/17 19:59 10/08/17 08:28 1.5 MLS/MIN Objective Vital Signs Date Time Temp Pulse Resp B/P (MAP) Pulse Ox O2 Delivery O2 Flow Rate FiO2 10/08/17 08:00 100 Room Air 10/08/17 07:45 36.7 59 16 98/61 (73) 100 Room Air 10/08/17 00:00 Room Air 10/07/17 23:03 36.3 62 16 93/60 (71) 98 Room Air 10/07/17 20:00 Room Air 10/07/17 15:43 Room Air 10/07/17 14:59 36.7 78 18 96/60 (72) 100 10/07/17 11:09 Room Air Physical Exam General Appearance: WD/WN, no apparent distress Eyes: EOMI ENT: hearing grossly normal Neck: supple Respiratory/Chest: lungs clear, normal breath sounds, no respiratory distress Cardiovascular: regular rate, rhythm, no gallop, no murmur Abdomen: normal bowel sounds, non tender, soft Extremities: normal inspection Neurologic/Psych: alert, normal mood/affect, oriented x 3 Skin: warm/dry Laboratory Results Last 24 Hours Test 10/07/17 17:15 10/08/17 06:13 Hemoglobin 9.5 g/dL 9.2 g/dL Hematocrit 29.8 % 29.7 % White Blood Count 20.23 K/uL Red Blood Count 4.07 M/uL Mean Corpuscular Volume 73.0 fL Mean Corpuscular Hemoglobin 22.6 pg Mean Corpuscular Hemoglobin Concent 31.0 g/dl Platelet Count 422 K/uL Mean Platelet Volume 8.2 fL Neutrophils (%) (Auto) 75.2 % Lymphocytes (%) (Auto) 16.5 % Monocytes (%) (Auto) 6.5 % Eosinophils (%) (Auto) 0.1 % Basophils (%) (Auto) 0.1 % Neutrophils # (Auto) 15.22 K/uL Lymphocytes # (Auto) 3.33 K/uL Monocytes # (Auto) 1.32 K/uL Eosinophils # (Auto) 0.02 K/uL Basophils # (Auto) 0.02 K/uL RDW Standard Deviation 48.7 fL RDW Coefficient of Variation 18.7 % Immature Granulocyte % (Auto) 1.6 % Immature Granulocyte # (Auto) 0.32 K/uL Nucleated RBC Absolute Count (auto) 0.07 K/uL Nucleated Red Blood Cells % 0.3 % Assessment and Plan Patient is a 21 year-old female with a history of ulcerative colitis admitted with an acute exacerbation and associated chronic blood loss anemia. 1. Patient is improved clinically and is stable from a GI standpoint for discharge. 2. Recommend Prednisone taper starting at 40 mg to be decreased by 5 mg weekly until finished. 3. Continue Asacol HD 1600 mg TID. 4. Low residue diet. 5. Outpatient follow up with home solar installation manager upon discharge. Agree with BETTY Faith as above Patient was discharged prior to my evaluation
--- NOTE | 2017-10-08 09:54 | Progress Note ---
Progress Note Date of Service Oct 08, 2017. Progress Note Late entry from yesterdayty: Pt reports dramatically improved diarrhea and no rectal bleeding. Yamileth PO, feels well, asking to go home. Date Time Temp Pulse Resp B/P (MAP) Pulse Ox O2 Delivery O2 Flow Rate FiO2 10/08/17 08:00 100 Room Air 10/08/17 07:45 36.7 59 16 98/61 (73) 100 Room Air 10/08/17 00:00 Room Air 10/07/17 23:03 36.3 62 16 93/60 (71) 98 Room Air 10/07/17 20:00 Room Air 10/07/17 15:43 Room Air 10/07/17 14:59 36.7 78 18 96/60 (72) 100 10/07/17 11:09 Room Air Abd soft NT Labs reviewed A/P: IBD flare - Cont IV steroids until 10/08, then transition to pred 40 mt; Dr. Fountain to determine pt of taper, but please provide enough meds for 40 mg for 10 days. OK for discharge on 10/08, f/u with Dr. Fountain as outpt. - Please d/c on low res diet.
[2017-10-08] MEDS ORDERED: ASC400 PO (13:37)
[2017-10-08] MEDS ORDERED: PRED20TA PO (13:37)
[2017-10-08] MEDS ORDERED: CIPR-304 PO (13:37)
[2017-10-08] MEDS ORDERED: PRD5 PO (13:37)
[2017-10-08] MEDS ORDERED: PRD10 PO (13:37)
--- NOTE | 2017-10-08 13:59 | Discharge Instructions ---
Discharge Instructions Date of Service Oct 08, 2017. Admission Reason for Admission: IBD Discharge Discharge Diagnosis / Problem: Bloody diarrhea Discharge Goals Goal(s): Decrease discomfort, Improve function Activity Recommendations Activity Limitations: resume your previous activity . Instructions / Follow-Up Instructions / Follow-Up You were admitted with bloody diarrhea ad lower abdominal pain and admitted for ulcerative colitis flare. You were seen by gastroenterology and have the following recommendations. Your stool cultures grew salmonella and you are recommended to use antibiotics. Recommendations: - Continue to use asacol HD 1600 mg three times/day - You were started on a prednisone taper; Use 40 mg daily for 7 days followed by 35 mg daily for 7 days, 30 mg daily for 7 days, 25 mg daily for 7 days, 20 mg daily for 7 days, 15 mg daily for 7 days, 10 mg daily for 7 days, 5 mg daily for 7 days and stop - Maintain a low residue diet - Please use ciprofloxacin 500 mg tablet twice daily for 14 days for Salmonella - Please follow up with in about a week or so Blood loss anemia: - continue to use Iron tabs - Please get a CBC in about a week and follow up with your PCP Current Hospital Diet Patient's current hospital diet: Low Fiber Diet Discharge Diet Recommended Diet: Low Fiber Diet Pending Studies Studies pending at discharge: yes List of pending studies: Stool ova and parasite, giardia Medical Emergencies . Who to Call and When: Medical Emergencies: If at any time you feel your situation is an emergency, please call 911 immediately. . Non-Emergent Contact Non-Emergency issues call your: Primary Care Provider . . "Provider Documentation" section prepared by Cele Dickerson. . Resident Tracking Resident Involvement: Resident Care Provided Care Provided: Adult Hospital Medicine
[2017-10-08 14:02] VITALS: BP 98/61; PULSE 59; TEMP 36.7; O2SAT 100
--- NOTE | 2017-10-08 16:35 | Discharge Summary ---
Discharge Summary Date of Service Oct 08, 2017. Discharge Summary Admission Date: Oct 05, 2017 at 14:49 Discharge Date: Oct 08, 2017 Discharge Disposition: Home Principal Diagnosis: UC flare in the setting of salmonella infection Problems/Secondary Diagnoses: Acute blood loss anemia Procedures: none Consultations: GI consultation Medication Reconciliation New Medications: Ciprofloxacin HCl (Ciprofloxacin) 500 Mg Tab 500 MG PO Q12H for 14 Days, #28 TAB Prednisone (Prednisone) 5 Mg Tab 5 MG PO UD, #30 TAB Prednisone (Prednisone) 10 Mg Tab 10 MG PO UD, #30 TAB Prednisone (Prednisone) 20 Mg Tab 20 MG PO UD, #42 TAB Mesalamine (Delzicol) 400 Mg Cap 1600 MG PO TID for 14 Days, #135 CAP Continued Medications: Ferrous Sulfate (Slow Fe) 142 Mg Tab 142 MG PO DAILY Discontinued Medications: Hydrocodone/Acetaminophen 5MG/325MG ([place] 5MG/325MG) Tab 1 TABLET PO Q6 PRN for Pain, #12 TAB For Initial Treatment Mesalamine (Apriso) 0.375 Gm Cap 4 CAP PO DAILY Discharge Exam Review of Systems: Constitutional: No fever Respiratory: No shortness of breath Cardiovascular: No chest pain Abdomen: + diarrhea (improving decrease frequency and more formed), No pain , No nausea, No vomiting Genitourinary - Female: No dysuria Physical Exam: General Appearance: no apparent distress Eyes: normal inspection Neck: supple Respiratory/Chest: lungs clear, normal breath sounds Cardiovascular: regular rate, rhythm, no murmur Abdomen / GI: normal bowel sounds, non tender, soft Extremities: no calf tenderness, no pedal edema Neurologic/Psychiatric: alert, oriented x 3 Skin: warm/dry Hospital Course 21yo F admitted for UC flare in the setting of salmonella infection. Associated with acute anemia in the setting of BRBPR (lower GI bleed) s/p receiving 1 unit pRBC with stable hemoglobin of 9.2 prior to discharge. UC flare with lower GI bleed in the setting of salmonella infection - Stool studies positive for salmonella - Received empiric cipro and flagyl IV (discharged with cipro 500mg BID x 14 days for treatment of salmonella) - Received Prednisone 20mg IV BID - Received Mesalamine 1600mg TID - Received Iron sucrose 100mg IV daily - Received 1 unit pRBC for Hgb of 6.8 on day 1 - improved to 9.2 prior to discharge - GI consulted: recommended prednisone 40mg daily taper (decrease by 5mg weekly until finished); continue mesalamine 1600mg TID and low residue diet; outpt f/u with Dr. Fountian Resident Physician Supervision Note: I interviewed and examined the patient. Discussed with Dr. Fernandez and agree with findings and plan as documented in the note. Any exceptions or clarifications are listed here: None Documented By: Justice Loza feeling better wants to go home, discussed salmonella on cultures vitals noted nad breathing unlabored no pallor or icterus salmonella induced UC flare -treat for both, improving stable for discharge, otherwise as above acute blood loss anemia related to GI bleeding treated with 1 unit PRBC, now stable. outpt f/u Total Time Spent: Less than 30 minutes This includes examination of the patient, discharge planning, medication reconciliation, and communication with other providers. Discharge Instructions Please refer to the electronic Patient Visit Report (Discharge Instructions) for additional information. Additional Copies To [facility]
== END 2017-10-08 15:04 | disposition home or self-care (01) | DRG 386 ==
LOC: C.EDB 09:22 → C.4E 14:49 → ENRESERV 15:34
PROVIDERS: ADMIT Internal Medicine; ATTEND Family Medicine
DX: K51.90 Ulcerative colitis, unspecified, without complications (principal); A02.9 Salmonella infection, unspecified; K63.9 Disease of intestine, unspecified; D64.9 Anemia, unspecified; Z83.3 Family history of diabetes mellitus; Z80.9 Family history of malignant neoplasm, unspecified; Z82.49 Family history of ischemic heart disease and other diseases of the circulatory system